=== PATIENT | male | born 1965 | race Caucasian/White ===

== ENCOUNTER → 2017-03-20 | Outpatient (CLI) | payer BC ==
--- NOTE | 2017-03-20 16:09 | CONS ---
Date/Time of Note Date/Time of Note DATE: 03/20/17 TIME: 16:01 Assessment/Plan Assessment/Plan Additional Assessment/Plan Diagnosis is lumbosacral sprain with right hip sprain Treatment he is being given a prescription of Celebrex 200 mg twice daily to be taken until pain resolves he is to continue his exercise program if the pain does not resolve his to be followed up again in 2 weeks time. Consultation Date/Type/Reason Admit Date/Time Hx of Present Illness Known to me. 2 days ago was walking down a wet slope after the rain and slipped on his left side got up and went to his gym that evening he experienced pain in the left arm back pain and then pain in the right hip. Past medical history he has had a malignant melanoma and is being in a somewhat of a remission for the last 8 months he is undergoing immunotherapy chemotherapyThe original melanoma was at the back of his chest and it spread to his lungs Occupation account underwriter and direct Exam/Review of Systems Exam Very healthy 51-year-old male height 6 foot 1 weight 287 pounds he has put on 20 pounds of weight following the treatment for his malignant melanoma. Examination of the right hip reveals no tenderness he walks without a limp although he experiences pain in the right hip area he also experiences pain over the right iliac crestDeep palpation reveals no areas of tenderness there is no evidence of any bruising. Examination of the right hip reveals a full and complete range of hip motion without painLogical examination of the lower extremities reveals no motor sensory deficits X-rays of the pelvis on the right hip reveal no evidence of any fractures or dislocations he has exceptionally good quality strong bones noted throughout. ROCK GARZA Mar 20, 2017 16:09
--- NOTE | 2017-03-20 17:00 | RADRPT ---
PROCEDURE: XR Hip. CLINICAL INDICATION: Right hip pain TECHNIQUE: Single image of the pelvis and 2 phase of the right hip COMPARISON: None. FINDINGS: There is no evidence of acute fracture. Alignment is normal. Joint spaces are preserved. Slight osseous prominence at the anterosuperior femoral head neck junction bilaterally is noted. IMPRESSION: 1. No radiographic evidence of acute osseous abnormality. 2. Preserved joint spaces with slight osseous prominence at the anterosuperior femoral head neck alber ctions bilaterally. RPTAT: [facility] .Barry Hampton MD, MD Date Time Electronically viewed and signed by .Barry Hampton MD, on 03/20/2017 16:59 .K/
== END | disposition home or self-care (01) ==
LOC: HKI 14:45
DX: S33.9XXD Sprain of unspecified parts of lumbar spine and pelvis, subsequent encounter (principal); S73.101D Unspecified sprain of right hip, subsequent encounter; X58.XXXD Exposure to other specified factors, subsequent encounter
CPT/HCPCS: 73502; G0463